=== PATIENT | male | born 1955 | race Caucasian/White ===

== ENCOUNTER 2023-07-31 08:39 | Day surgery (SDC) | payer OTHER ==
[~2023-07-31] VITALS: Ht 167.6 cm; Wt 70.8 kg
[2023-07-31] MEDS ORDERED: MIDAZOLAM HCL 5 MG/5 ML VIAL ONE (08:50)
[2023-07-31] MEDS ORDERED: MEPERIDINE 100 MG INJ. 100 MG/ML VIAL ONE (08:50)
[2023-07-31] MEDS ORDERED: fentaNYL CITRATE/PF 100 MCG/2 ML AMP ONE (09:23)
[2023-07-31 12:25] VITALS: O2SAT 95
[2023-07-31 15:19] VITALS: BP_SYST 151; PULSE 77; RESP 18
== END 2023-07-31 11:00 | disposition home or self-care (01) ==
LOC: SDS 08:39 → SMU 08:43 → SDS 11:00
PROVIDERS: ATTEND Student in an Organized Health Care Education/Training Program
DX: Z12.11 Encounter for screening for malignant neoplasm of colon (principal); K29.50 Unspecified chronic gastritis without bleeding; D12.0 Benign neoplasm of cecum; D12.8 Benign neoplasm of rectum; K64.8 Other hemorrhoids; I50.9 Heart failure, unspecified; K76.0 Fatty (change of) liver, not elsewhere classified; Z80.0 Family history of malignant neoplasm of digestive organs; Z79.82 Long term (current) use of aspirin; Z79.899 Other long term (current) drug therapy
CPT/HCPCS: 45385; 45380; 43239; 88305; 88312; 88313; 99153; 99152; G0378; J2250; J3010; 45382; J2175